=== PATIENT | female | born 1960 | race American Indian/Alaskan Native ===

== ENCOUNTER 2016-07-22 14:27 | Observation (INO) | payer BC, MEDICARE ==
[2016-07-22 14:33] VITALS: BMI 30.2
[2016-07-22] MEDS ORDERED: Albuterol-Ipratrop 3 mg / 0.5 (3 ml) UD IH STA (15:02)
[2016-07-22 15:23] LABS: ADD MANUAL DIFF? NO
[2016-07-22 15:32] LABS: BASO # 0.02 K/mm3 (0.0-2.0); BASO % 0.2 % (0.0-3.0); EOS % 0.3 % (1.5-5.0); GRAN # 5.95 (1.4-6.5); GRAN % 64.5 % (50.0-68.0); HEMATOCRIT 39.1 % (36.0-48.0); LYMPH # 2.8 (1.2-3.4); LYMPH % 30.8 % (22.0-35.0); MEAN CELL VOLUME 84.3 fL (80.0-105.0); MEAN CORPUSCULAR HEMOGLOBIN 29.1 pg (25.0-35.0); MEAN CORPUSCULAR HGB CONC 34.5 g/dl (31.0-37.0); MEAN PLATELET VOLUME 9.3 fl (7.0-11.0); MONO # 0.4 (0.1-0.6); MONO % 4.2 % (1.0-6.0); PLATELET COUNT 299 10^3/uL (120.0-450.0); WHITE BLOOD COUNT 9.2 10^3/ul (4.5-11.0)
--- NOTE | 2016-07-22 15:32 | ED PDOC ---
Arrival/HPI - General Chief Complaint: Chest Pain Time Seen by Provider: 07/22/16 14:38 Historian: Patient - History of Present Illness Narrative History of Present Illness (Text): 07/22/16 15:26 56 yo F with past medical history of high cholesterol and is a smoker, presents to the emergency room complaining of dizziness described as lightheadedness with no vertigo associated with left sided midsternal chest pain and shortness of breath which started prior to arrival. Patient states that she was fasting since last night because she initially intended to have blood work early this morning however did not go, hence only had a cup of coffee this morning then started heading towards the train station on her way to go to work. Patient states she was running for the train station when her symptoms started, she started feeling warm and lightheaded. States while she was riding on the train she ate a crumb cake, assuming her symptoms were related to not eating. When she got off of the train as she was walking to work, which is only 4 blocks away , she continued to feel lightheaded and then the chest pain and shortness of breath started. At the present time patient continues to complain of feeling lightheaded with mild left midsternal chest pain described as a pressure sensation with no shortness of breath at this time. Reports (-) worsening of symptoms with movement of head, (-) similar episodes in the past. Otherwise: (- ) recent travel, (-0 leg pain/swelling, (-) trauma, (-) headache, (-) tinnitus, (-) hearing loss, (-) cough, (-) dyspnea, (-) fever, (-) vomiting, (-) diarrhea , (-) syncope, (-) GI bleeding. Of note, the patient reports no prior stress tests in the past, does admit to a prior echo 2 years ago which she states was within normal limits. PMD Rebecca Lewis Past Medical History - Provider Review Nursing Documentation Reviewed: Yes - Travel History Have you recently traveled outside [place] w/in the past 3 mons?: No - Infectious Disease Hx of Infectious Diseases: None - Cardiac Hx Cardiac Disorders: Yes - Pulmonary Hx Respiratory Disorders: Yes Hx Asthma: Yes - Neurological Hx Neurological Disorder: No - HEENT Hx HEENT Disorder: No - Renal Hx Renal Disorder: No - Endocrine/Metabolic Hx Endocrine Disorders: No - Hematological/Oncological Hx Blood Disorders: No - Integumentary Hx Dermatological Disorder: No - Musculoskeletal/Rheumatological Hx Musculoskeletal Disorders: No - Gastrointestinal Hx Gastrointestinal Disorders: No - Genitourinary/Gynecological Hx Genitourinary Disorders: No - Psychiatric Hx Psychophysiologic Disorder: No Hx Depression: No Hx Substance Use: No - Surgical History Hx Hysterectomy: Yes Hx Tubal Ligation: Yes - Anesthesia Hx Anesthesia: Yes Hx Anesthesia Reactions: No - Suicidal Assessment Feels Threatened In Home Enviroment: No Family/Social History - Physician Review Nursing Documentation Reviewed: Yes Family/Social History: Diabetes (mother), Other (cirrhosis - father) Smoking Status: Light Smoker < 10 Cigarettes Daily Hx Alcohol Use: Yes Hx Substance Use: No Hx Substance Use Treatment: Yes (ppd) Allergies/Home Meds Allergies/Adverse Reactions: Allergies aspirin Allergy (Verified 07/22/16 14:34) SWELLING coconut Allergy (Verified 07/22/16 14:34) RASH codeine Allergy (Verified 07/22/16 14:34) SWELLING latex Allergy (Verified 07/22/16 14:34) RASH Home Medications: Home Meds Medication Instructions Recorded Confirmed No Known Home Med 07/22/16 07/22/16 Review of Systems - Review of Systems Constitutional: Normal. absent: Fatigue, Weight Change, Fevers Respiratory: Normal, SOB. absent: Cough, Sputum Cardiovascular: Normal, Chest Pain. absent: Palpitations, Edema Gastrointestinal: Normal. absent: Abdominal Pain, Stool Changes, Appetite Changes Musculoskeletal: Normal. absent: Arthralgias, Back Pain, Neck Pain Skin: Normal. absent: Rash, Pruritis, Skin Lesions Neurological: Normal, Dizziness. absent: Headache, Focal Weakness Physical Exam - Physical Exam Narrative Physical Exam (Text): 07/22/16 15:34 GENERAL APPEARANCE: Patient is awake, alert, oriented x 3, in mild distress. SKIN: Warm, dry; (-) cyanosis. HEAD: (-) scalp swelling or tenderness. EYES: (-) conjunctival pallor. ENMT: TMs normal. Mucous membranes dry. NECK: (-) tenderness, (-) stiffness, (-) lymphadenopathy. Carotids: (-) bruit. CHEST AND RESPIRATORY: (-) rales, (-) rhonchi, (-) wheezes; breath sounds equal bilaterally. HEART AND CARDIOVASCULAR: (-) irregularity; (-) murmur, (-) gallop. ABDOMEN AND GI: Soft; (-) distention, (-) tenderness, (-) rebound, (-) guarding , (-) palpable masses, (-) flank tenderness. EXTREMITIES: (-) deformity; (-) edema. Distal pulses: present. NEURO AND PSYCH: Mental status as above. plaque maker: (+) Horizontal nystagmus; Pupils equal & reactive, EOMI, (-) facial asymmetry; (-) dysarthria; tongue and uvula midline. Strength and DTRs symmetric. Gait: Not tested at this time. Vital Signs Temp Pulse Resp BP Pulse Ox 07/22/16 19:00 72 18 142/68 99 07/22/16 17:16 76 18 145/72 100 07/22/16 14:31 98.1 F 76 16 169/95 H 100 Finger Stick Blood Glucose: 96 Medical Decision Making ED Course and Treatment: 07/22/16 15:34 56 yo F w/ PMH of high cholesterol and is a smoker, presents to emergency room complaining of lightheadedness, chest pain and shortness of breath while she was walking to work this morning. Plan: -- Labs -- IV fluids -- Urinalysis -- EKG -- CXR -- Sublingual nitroglycerin -- Reassess and disposition -- CT HEAD 07/22/16 16:49 EKG: NSR at 82 bpm, (-) acute ST changes, as read by ZORA. CXR : NAD, as read by PA Labs reviewed and are noted to be within normal limits, troponin is negative, BNP is negative. On reevaluation, the patient remains awake, alert, oriented 3 in no acute distress. Patient reports improvement in her symptoms. Denies any chest pain, shortness of breath and dizziness at this time. CT head still pending. 07/22/16 17:24 On second reevaluation, the patient is laying comfortably in bed in no acute distress. Still denies any chest pain, shortness of breath or dizziness at this time. CT head is within normal limits with no acute findings. Diagnostic results discussed with the patient in great detail. Patient informed that considering her history, physical exam and diagnostic results today that it is highly recommended that she stays for inpatient tele observation for further observation and repeat 6 hour troponin. Patient's symptoms are likely due to an episode of hypoglycemia, although her FS was 96, she continued to experience residual hypoglycemic symptoms. Patient is consenting to stay for further observation. On exam, lungs are clear to auscultation, cardiac regular rate and rhythm, repeat neuro exam shows no focal findings, no nystagmus, patient is able to stand up, get out of the bed on her own without any assistance, is ambulating with a normal steady gait. Repeat troponin at 2145 ordered. VS: P76 BP145/72 R18 [id number]. Case d/w medical auditor and Dr. Cruz, agree with plan for inpatient tele obs. - Lab Interpretations Lab Results: Lab Results 07/22/16 14:38: POC Glucose (mg/dL) 96 I have reviewed the lab results: Yes Interpretation: All labs normal - RAD Interpretation Narrative RAD Interpretations (Text): 07/22/16 17:04 CT head: FINDINGS: HEMORRHAGE: No intracranial hemorrhage. BRAIN: No mass effect or edema. No atrophy or chronic microvascular ischemic changes. VENTRICLES: Unremarkable. No hydrocephalus. CALVARIUM: Unremarkable. PARANASAL SINUSES: Unremarkable as visualized. No significant inflammatory changes. MASTOID AIR CELLS: Unremarkable as visualized. No inflammatory changes. OTHER FINDINGS: None. IMPRESSION: Normal CT of the Head. - Medication Orders Current Medication Orders: Albuterol/Ipratropium (Duoneb 3 Mg/0.5 Mg (3 Ml) Ud) 3 ml IH [id number] PRN PRN Reason: Shortness of Breath Pantoprazole Sodium (Protonix Ec Tab) 40 mg PO DAILY SHAYE Discontinued Medications Albuterol/Ipratropium (Duoneb 3 Mg/0.5 Mg (3 Ml) Ud) 3 ml IH STAT STA Stop: 07/22/16 15:03 Last Admin: 07/22/16 15:27 Dose: 3 ml Nitroglycerin (Nitrostat Sl Tab) 0.4 mg SL STAT STA Stop: 07/22/16 15:01 Last Admin: 07/22/16 15:27 Dose: Not Given Non-Admin Reason: Patient Refused - PA / EFFICIENCY ANALYST / Resident Statement / has reviewed & agrees with the documentation as recorded. Disposition/Present on Arrival - Present on Arrival Any Indicators Present on Arrival: No History of DVT/PE: No History of Uncontrolled Diabetes: No Urinary Catheter: No History of Decub. Ulcer: No History Surgical Site Infection Following: None - Disposition Have Diagnosis and Disposition been Completed?: Yes Diagnosis: Lightheadedness, Chest pain, Hypoglycemia Disposition: HOSPITALIZED Disposition Time: 19:00 Patient Plan: Observation (tele) Patient Problems: Current Active Problems Problem Status Onset Chest pain Acute Hypoglycemia Acute Lightheadedness Acute Condition: STABLE
[2016-07-22 15:40] LABS: INR 1.06 (0.93-1.08); PARTIAL THROMBOPLASTIN TIME 27.8 Seconds (23.7-30.8)
[2016-07-22 16:05] LABS: URINE BILIRUBIN NEGATIVE (NEGATIVE); URINE BLOOD SMALL (NEGATIVE); URINE GLUCOSE (UA) NEGATIVE (NEGATIVE); URINE KETONE NEGATIVE (NEGATIVE); URINE LEUKOCYTE ESTERASE NEGATIVE Leu/uL (NEGATIVE); URINE PROTEIN NEGATIVE mg/dL (<30 mg/dL); URINE UROBILINOGEN 0.2 E.U./dL (<1 E.U./dL)
[2016-07-22 16:06] LABS: URINE APPEARANCE CLEAR (CLEAR); URINE COLOR YELLOW (YELLOW)
[2016-07-22 16:19] LABS: URINE BACTERIA FEW (NEG)
[2016-07-22 16:30] LABS: ALKALINE PHOSPHATASE 80 U/L (38-133); ALT/SGPT 22 U/L (7-56); AST/SGOT 26 U/L (15-39); BILIRUBIN,TOTAL 0.6 mg/dL (0.2-1.3); BLOOD UREA NITROGEN 11 mg/dL (7-21); CARBON DIOXIDE 25 mmol/L (21-33); CHLORIDE 106 mmol/L (98-107); GFR AFRICAN-AMERICAN > 60; GLUCOSE,RANDOM 103 mg/dL (70-110); MAGNESIUM 2.1 mg/dL (1.7-2.2); POTASSIUM 3.9 mmol/L (3.6-5.0); SODIUM 138 mmol/L (132-148); TOTAL PROTEIN 8.4 g/dL (5.8-8.3)
[2016-07-22 16:39] LABS: TROPONIN I < 0.01 ng/mL
--- NOTE | 2016-07-22 16:48 | CT ---
PROCEDURE: CT HEAD WITHOUT CONTRAST. HISTORY: dizziness COMPARISON: None available. TECHNIQUE: Axial computed tomography images were obtained through the head/brain without intravenous contrast. Radiation dose: Total exam DLP = 725 mGy-cm. This CT exam was performed using one or more of the following dose reduction techniques: Automated exposure control, adjustment of the mA and/or kV according to patient size, and/or use of iterative reconstruction technique. FINDINGS: HEMORRHAGE: No intracranial hemorrhage. BRAIN: No mass effect or edema. No atrophy or chronic microvascular ischemic changes. VENTRICLES: Unremarkable. No hydrocephalus. CALVARIUM: Unremarkable. PARANASAL SINUSES: Unremarkable as visualized. No significant inflammatory changes. MASTOID AIR CELLS: Unremarkable as visualized. No inflammatory changes. OTHER FINDINGS: None. IMPRESSION: Normal CT of the Head.
[2016-07-22] MEDS ORDERED: Albuterol-Ipratrop 3 mg / 0.5 (3 ml) UD IH PRN (20:47)
--- NOTE | 2016-07-22 21:40 | CP.PCM.HP ---
<Tory Bower - Last Filed: 07/23/16 01:18> History of Present Illness - History of Present Illness History of Present Illness: PGY-1 h&p 56 yo female with PMH of HLD, asthma, sciatica and dermatitis presented to ED with dizziness and lightheadedness associated with chest pain and SOB. Patient states that she was fast since the night before for blood work. She had a cup of coffee before she came to work. She states while running for the train she became dizzy and lightheaded.She ate crumb cake while on the train, believing the dizziness was related to not eating however she count to have dizziness and lightheadedness. She states while walking from the train station to work she started to feel unbalanced and developed chest tightness and SOB. While in the ED her dizziness and sob improved. She continues to report chest pain however it is no longer tightness but a pinch- like pain in the middle of the chest. She states that the pain is intermittent, lasting for a few seconds and is associated with deep breathing and movement. patient also reports numbness on the lateral aspect of her left thigh due to her sciatica. PMH: HLD, asthma, sciatica and dermatitis PSH: hysterectomy social hx: smokes 1/2-1 ppd, occasional alcohol use, denies illicit drug use Fam hx: father- cirrhosis and emphysema allergy: codeine, coconut, latex, asa PMD: [facility] Present on Admission - Present on Admission Any Indicators Present on Admission: No Review of Systems - Constitutional Constitutional: Chills. absent: Fever, Headache, Weight Gain, Weight Loss - EENT Eyes: absent: Blurred Vision, Change in Vision Ears: absent: Decreased Hearing Nose/Mouth/Throat: absent: Nasal Congestion, Nasal Discharge, Sore Throat - Cardiovascular Cardiovascular: Chest Pain, Diaphoresis, Dyspnea on Exertion. absent: Dyspnea, Edema, Pain Radiating to Arm/Neck/Jaw - Respiratory Respiratory: Dyspnea on Exertion. absent: Cough, Hemoptysis - Gastrointestinal Gastrointestinal: Constipation, Heartburn, Nausea. absent: Abdominal Pain, Diarrhea, Vomiting - Genitourinary Genitourinary: absent: Difficulty Urinating, Dysuria, Hematuria - Musculoskeletal Musculoskeletal: Numbness (left leg 2/2 sciatica). absent: Muscle Weakness, Myalgias - Integumentary Integumentary: Rash (dermatitis on left hand ). absent: Skin Ulcer, Sores, Swelling, Wounds - Neurological Neurological: Abnormal Gait, Dizziness, Numbness. absent: Confusion, Headaches , Syncope, Tingling, Vertigo - Hematologic/Lymphatic Hematologic: absent: Easy Bleeding, Easy Bruising Past Patient History - Infectious Disease Hx of Infectious Diseases: None - Past Social History Smoking Status: Heavy Smoker > 10 Cigarettes Daily Alcohol: Occasional Drugs: Denies - CARDIAC Hx Cardiac Disorders: Yes - PULMONARY Hx Respiratory Disorders: Yes Hx Asthma: Yes - NEUROLOGICAL Hx Neurological Disorder: No - HEENT Hx HEENT Problems: No - RENAL Hx Chronic Kidney Disease: No - ENDOCRINE/METABOLIC Hx Endocrine Disorders: No - HEMATOLOGICAL/ONCOLOGICAL Hx Blood Disorders: No - INTEGUMENTARY Hx Dermatological Problems: No - MUSCULOSKELETAL/RHEUMATOLOGICAL Hx Musculoskeletal Disorders: No - GASTROINTESTINAL Hx Gastrointestinal Disorders: No - GENITOURINARY/GYNECOLOGICAL Hx Genitourinary Disorders: No - PSYCHIATRIC Hx Psychophysiologic Disorder: No Hx Depression: No Hx Substance Use: No - SURGICAL HISTORY Hx Hysterectomy: Yes Hx Tubal Ligation: Yes - ANESTHESIA Hx Anesthesia: Yes Hx Anesthesia Reactions: No Meds Allergies/Adverse Reactions: Allergies Allergy/AdvReac Type Severity Reaction Status Date / Time aspirin Allergy SWELLING Verified 07/22/16 14:34 coconut Allergy RASH Verified 07/22/16 14:34 codeine Allergy SWELLING Verified 07/22/16 14:34 latex Allergy RASH Verified 07/22/16 14:34 Physical Exam - Constitutional Appears: Well, No Acute Distress - Head Exam Head Exam: ATRAUMATIC, NORMOCEPHALIC - Eye Exam Eye Exam: EOMI, Normal appearance - ENT Exam ENT Exam: Mucous Membranes Moist - Respiratory Exam Respiratory Exam: Clear to Auscultation Bilateral, NORMAL BREATHING PATTERN. absent: Decreased Breath Sounds, Rhonchi, Wheezes, Respiratory Distress - Cardiovascular Exam Cardiovascular Exam: REGULAR RHYTHM, +S1, +S2. absent: Tachycardia, Diastolic murmur, Systolic Murmur - GI/Abdominal Exam GI & Abdominal Exam: Normal Bowel Sounds, Soft. absent: Distended, Firm, Guarding, Tenderness - Extremities Exam Extremities exam: Positive for: normal inspection. Negative for: pedal edema, tenderness - Neurological Exam Neurological exam: Alert, Oriented x3 - Skin Skin Exam: Dry, Intact, Normal Color, Warm Results - Vital Signs Recent Vital Signs: Last Vital Signs Temp 98.1 F 07/22/16 14:31 Pulse 72 07/22/16 19:00 Resp 18 07/22/16 19:00 BP 142/68 07/22/16 19:00 Pulse Ox 99 07/22/16 19:00 - Labs Result Diagrams: 07/22/16 15:10 07/22/16 15:52 Labs: Laboratory Results - last 24 hr 07/22/16 07/22/16 07/22/16 15:10 15:10 15:30 WBC 9.2 RBC 4.64 Hgb 13.5 Hct 39.1 MCV 84.3 MCH 29.1 MCHC 34.5 RDW 14.0 Plt Count 299 MPV 9.3 Gran % 64.5 Lymph % (Auto) 30.8 [place] % (Auto) 4.2 Eos % (Auto) 0.3 L Baso % (Auto) 0.2 Gran # 5.95 Lymph # 2.8 Phelps # 0.4 Eos # 0.0 Baso # 0.02 PT 11.4 INR 1.06 APTT 27.8 Sodium Potassium Chloride Carbon Dioxide Anion Gap BUN Creatinine Est GFR ( Amer) Est GFR (Non-Af Amer) Random Glucose Calcium Magnesium Total Bilirubin AST ALT Alkaline Phosphatase Lactate Dehydrogenase Total Creatine Kinase Troponin I NT-Pro-B Natriuret Pep Total Protein Albumin Globulin Albumin/Globulin Ratio Urine Color Yellow Urine Appearance Clear Urine pH 6.0 Ur Specific [place] 1.010 Urine Protein Negative Urine Glucose (UA) Negative Urine Ketones Negative Urine Blood Small H Urine Nitrate Negative Urine Bilirubin Negative Urine Urobilinogen 0.2 Ur Leukocyte Esterase Negative Urine RBC 1 - 3 Urine WBC 1 - 3 Ur Epithelial Cells 1 - 3 Urine Bacteria Few 07/22/16 15:52 WBC RBC Hgb Hct MCV MCH MCHC RDW Plt Count MPV Gran % Lymph % (Auto) [place] % (Auto) Eos % (Auto) Baso % (Auto) Gran # Lymph # [place] # Eos # Baso # PT INR APTT Sodium 138 Potassium 3.9 Chloride 106 Carbon Dioxide 25 Anion Gap 11 BUN 11 Creatinine 0.9 Est GFR ( Amer) > 60 Est GFR (Non-Af Amer) > 60 Random Glucose 103 Calcium 10.0 Magnesium 2.1 Total Bilirubin 0.6 AST 26 ALT 22 Alkaline Phosphatase 80 Lactate Dehydrogenase 400 Total Creatine Kinase 159 Troponin I < 0.01 NT-Pro-B Natriuret Pep 14.7 Total Protein 8.4 H Albumin 4.1 Globulin 4.3 Albumin/Globulin Ratio 1.0 L Urine Color Urine Appearance Urine pH Ur Specific [place] Urine Protein Urine Glucose (UA) Urine Ketones Urine Blood Urine Nitrate Urine Bilirubin Urine Urobilinogen Ur Leukocyte Esterase Urine RBC Urine WBC Ur Epithelial Cells Urine Bacteria Assessment & Plan - Assessment and Plan (Free Text) Assessment: 56 yo female with PMH of HLD, asthma, sciatica and dermatitis presented to ED with dizziness and lightheadedness associated with chest pain and SOB. Plan: 1. dizziness with chest pain - most likely secondary to fasting - trops neg x1, cont to trend - EKG NSR - CXR no active disease - neurochecks - echo - cardiology and neurology consult 2. asthma - duonebs prn ppx GI- protonix DVT- SCDs <Iggy Cruz - Last Filed: 07/23/16 01:41> Results - Vital Signs Recent Vital Signs: Last Vital Signs Temp 98.6 F 07/22/16 23:22 Pulse 51 L 07/22/16 23:22 Resp 20 07/22/16 23:22 BP 128/89 07/22/16 23:22 Pulse Ox 99 07/22/16 19:00 - Labs Result Diagrams: 07/22/16 15:10 07/22/16 15:52 Labs: Laboratory Results - last 24 hr 07/22/16 07/22/16 07/22/16 15:10 15:10 15:30 WBC 9.2 RBC 4.64 Hgb 13.5 Hct 39.1 MCV 84.3 MCH 29.1 MCHC 34.5 RDW 14.0 Plt Count 299 MPV 9.3 Gran % 64.5 Lymph % (Auto) 30.8 [place]helps % (Auto) 4.2 Eos % (Auto) 0.3 L Baso % (Auto) 0.2 Gran # 5.95 Lymph # 2.8 Phelps # 0.4 Eos # 0.0 Baso # 0.02 PT 11.4 INR 1.06 APTT 27.8 Sodium Potassium Chloride Carbon Dioxide Anion Gap BUN Creatinine Est GFR ( Amer) Est GFR (Non-Af Amer) Random Glucose Calcium Magnesium Total Bilirubin AST ALT Alkaline Phosphatase Lactate Dehydrogenase Total Creatine Kinase Troponin I NT-Pro-B Natriuret Pep Total Protein Albumin Globulin Albumin/Globulin Ratio Urine Color Yellow Urine Appearance Clear Urine pH 6.0 Ur Specific [place] 1.010 Urine Protein Negative Urine Glucose (UA) Negative Urine Ketones Negative Urine Blood Small H Urine Nitrate Negative Urine Bilirubin Negative Urine Urobilinogen 0.2 Ur Leukocyte Esterase Negative Urine RBC 1 - 3 Urine WBC 1 - 3 Ur Epithelial Cells 1 - 3 Urine Bacteria Few 07/22/16 07/22/16 15:52 21:50 WBC RBC Hgb Hct MCV MCH MCHC RDW Plt Count MPV Gran % Lymph % (Auto) [place] % (Auto) Eos % (Auto) Baso % (Auto) Gran # Lymph # [place] # Eos # Baso # PT INR APTT Sodium 138 Potassium 3.9 Chloride 106 Carbon Dioxide 25 Anion Gap 11 BUN 11 Creatinine 0.9 Est GFR ( Amer) > 60 Est GFR (Non-Af Amer) > 60 Random Glucose 103 Calcium 10.0 Magnesium 2.1 Total Bilirubin 0.6 AST 26 ALT 22 Alkaline Phosphatase 80 Lactate Dehydrogenase 400 Total Creatine Kinase 159 Troponin I < 0.01 < 0.01 NT-Pro-B Natriuret Pep 14.7 Total Protein 8.4 H Albumin 4.1 Globulin 4.3 Albumin/Globulin Ratio 1.0 L Urine Color Urine Appearance Urine pH Ur Specific [place] Urine Protein Urine Glucose (UA) Urine Ketones Urine Blood Urine Nitrate Urine Bilirubin Urine Urobilinogen Ur Leukocyte Esterase Urine RBC Urine WBC Ur Epithelial Cells Urine Bacteria Attending/Attestation - Attestation I have personally seen and examined this patient.: Yes I have fully participated in the care of the patient.: Yes I have reviewed all pertinent clinical information: Yes Notes (Text): 07/23/16 01:40 Patient was seen when she was in the CODE room in the ER. Agree with history, physical examination, assessment and plan.
[2016-07-23 01:31] VITALS: RESP 20
[2016-07-23 07:17] LABS: ADD MANUAL DIFF? NO
[2016-07-23 07:20] LABS: BASO # 0.01 K/mm3 (0.0-2.0); BASO % 0.1 % (0.0-3.0); EOS # 0.1 (0.0-0.7); EOS % 1.3 % (1.5-5.0); GRAN # 4.62 (1.4-6.5); GRAN % 54.6 % (50.0-68.0); HEMATOCRIT 38.4 % (36.0-48.0); LYMPH # 3.3 (1.2-3.4); LYMPH % 38.7 % (22.0-35.0); MEAN CELL VOLUME 85.3 fL (80.0-105.0); MEAN CORPUSCULAR HEMOGLOBIN 28.7 pg (25.0-35.0); MEAN CORPUSCULAR HGB CONC 33.6 g/dl (31.0-37.0); MEAN PLATELET VOLUME 9.2 fl (7.0-11.0); MONO # 0.5 (0.1-0.6); MONO % 5.3 % (1.0-6.0); PLATELET COUNT 271 10^3/uL (120.0-450.0); RED CELL DISTRIBUTION WIDTH 14.1 % (11.5-14.5); WHITE BLOOD COUNT 8.5 10^3/ul (4.5-11.0)
[2016-07-23 07:26] VITALS: BP 121/76; TEMP 97.9; O2SAT 100
[2016-07-23 07:39] LABS: ALB/GLOB RATIO 0.9 (1.1-1.8); ALKALINE PHOSPHATASE 78 U/L (38-133); ALT/SGPT 29 U/L (7-56); AST/SGOT 23 U/L (15-39); BILIRUBIN,TOTAL 0.5 mg/dL (0.2-1.3); BLOOD UREA NITROGEN 11 mg/dL (7-21); CALCIUM 9.6 mg/dL (8.4-10.5); CARBON DIOXIDE 26 mmol/L (21-33); CHLORIDE 106 mmol/L (98-107); GFR AFRICAN-AMERICAN > 60; GLUCOSE,RANDOM 94 mg/dL (70-110); POTASSIUM 3.9 mmol/L (3.6-5.0); SODIUM 140 mmol/L (132-148); TOTAL PROTEIN 7.9 g/dL (5.8-8.3)
--- NOTE | 2016-07-23 07:52 | RAD ---
HISTORY: CP COMPARISON: No prior. FINDINGS: LUNGS: No active pulmonary disease. PLEURA: No significant pleural effusion identified, no pneumothorax apparent. CARDIOVASCULAR: Normal. OSSEOUS STRUCTURES: No significant abnormalities. VISUALIZED UPPER ABDOMEN: Normal. OTHER FINDINGS: None. IMPRESSION: No active disease.
[2016-07-23 08:28] LABS: TROPONIN I < 0.01 ng/mL
[2016-07-23] MEDS ORDERED: Pantoprazole 40 mg EC Tab PO SCH (10:00)
[2016-07-23 10:59] VITALS: PULSE 52
--- NOTE | 2016-07-23 11:20 | CP.PCM.DIS ---
<JustinoeleniJane - Last Filed: 07/23/16 11:16> Provider - Provider Date of Admission: 07/22/16 15:00 Attending physician: Ryan Diallo MD Primary care physician: Leeanne Lewis MD Consults: Cardiology: Dr. Soriano Neuro: Dr. Mcginnis Time Spent in preparation of Discharge (in minutes): 45 Diagnosis - Discharge Diagnosis (1) Chest pain Status: Acute (2) Lightheadedness Status: Acute (3) Asthma Status: Chronic Hospital Course - Lab Results Lab Results: Most Recent Lab Values WBC 8.5 10^3/ul (4.5-11.0) 07/23/16 07:16 RBC 4.50 10^6/uL (3.5-6.1) 07/23/16 07:16 Hgb 12.9 gm/dL (12.0-16.0) 07/23/16 07:16 Hct 38.4 % (36.0-48.0) 07/23/16 07:16 MCV 85.3 fL (80.0-105.0) 07/23/16 07:16 MCH 28.7 pg (25.0-35.0) 07/23/16 07:16 MCHC 33.6 g/dl (31.0-37.0) 07/23/16 07:16 RDW 14.1 % (11.5-14.5) 07/23/16 07:16 Plt Count 271 10^3/uL (120.0-450.0) 07/23/16 07:16 MPV 9.2 fl (7.0-11.0) 07/23/16 07:16 Gran % 54.6 % (50.0-68.0) 07/23/16 07:16 Lymph % (Auto) 38.7 % (22.0-35.0) H 07/23/16 07:16 [place] % (Auto) 5.3 % (1.0-6.0) 07/23/16 07:16 Eos % (Auto) 1.3 % (1.5-5.0) L 07/23/16 07:16 Baso % (Auto) 0.1 % (0.0-3.0) 07/23/16 07:16 Gran # 4.62 (1.4-6.5) 07/23/16 07:16 Lymph # 3.3 (1.2-3.4) 07/23/16 07:16 [place] # 0.5 (0.1-0.6) 07/23/16 07:16 Eos # 0.1 (0.0-0.7) 07/23/16 07:16 Baso # 0.01 K/mm3 (0.0-2.0) 07/23/16 07:16 PT 11.4 Seconds (9.9-11.8) 07/22/16 15:10 INR 1.06 (0.93-1.08) 07/22/16 15:10 APTT 27.8 Seconds (23.7-30.8) 07/22/16 15:10 Sodium 140 mmol/L (132-148) 07/23/16 07:16 Potassium 3.9 mmol/L (3.6-5.0) 07/23/16 07:16 Chloride 106 mmol/L (98-107) 07/23/16 07:16 Carbon Dioxide 26 mmol/L (21-33) 07/23/16 07:16 Anion Gap 12 (10-20) 07/23/16 07:16 BUN 11 mg/dL (7-21) 07/23/16 07:16 Creatinine 1.1 mg/dL (0.5-1.4) 07/23/16 07:16 Est GFR ( Amer) > 60 07/23/16 07:16 Est GFR (Non-Af Amer) 51 07/23/16 07:16 POC Glucose (mg/dL) 96 mg/dL (65-110) 07/22/16 14:38 Random Glucose 94 mg/dL (70-110) 07/23/16 07:16 Calcium 9.6 mg/dL (8.4-10.5) 07/23/16 07:16 Magnesium 2.1 mg/dL (1.7-2.2) 07/22/16 15:52 Total Bilirubin 0.5 mg/dL (0.2-1.3) 07/23/16 07:16 AST 23 U/L (15-39) 07/23/16 07:16 ALT 29 U/L (7-56) 07/23/16 07:16 Alkaline Phosphatase 78 U/L (38-133) 07/23/16 07:16 Lactate Dehydrogenase 345 U/L (333-699) 07/23/16 07:16 Total Creatine Kinase 147 U/L (35-230) 07/23/16 07:16 Troponin I < 0.01 ng/mL 07/23/16 07:16 NT-Pro-B Natriuret Pep 14.7 pg/mL (0-450) 07/22/16 15:52 Total Protein 7.9 g/dL (5.8-8.3) 07/23/16 07:16 Albumin 3.8 g/dL (3.0-4.8) 07/23/16 07:16 Globulin 4.1 gm/dL 07/23/16 07:16 Albumin/Globulin Ratio 0.9 (1.1-1.8) L 07/23/16 07:16 Urine Color Yellow (YELLOW) 07/22/16 15:30 Urine Appearance Clear (CLEAR) 07/22/16 15:30 Urine pH 6.0 (4.7-8.0) 07/22/16 15:30 Ur Specific [place] 1.010 (1.005-1.035) 07/22/16 15:30 Urine Protein Negative mg/dL (<30 mg/dL) 07/22/16 15:30 Urine Glucose (UA) Negative mg/dL (NEGATIVE) 07/22/16 15:30 Urine Ketones Negative mg/dL (NEGATIVE) 07/22/16 15:30 Urine Blood Small (NEGATIVE) H 07/22/16 15:30 Urine Nitrate Negative (NEGATIVE) 07/22/16 15:30 Urine Bilirubin Negative (NEGATIVE) 07/22/16 15:30 Urine Urobilinogen 0.2 E.U./dL (<1 E.U./dL) 07/22/16 15:30 Ur Leukocyte Esterase Negative [place]/uL (NEGATIVE) 07/22/16 15:30 Urine RBC 1 - 3 /hpf (0-2) 07/22/16 15:30 Urine WBC 1 - 3 /hpf (0-6) 07/22/16 15:30 Ur Epithelial Cells 1 - 3 /hpf (0-5) 07/22/16 15:30 Urine Bacteria Few (NEG) 07/22/16 15:30 - Hospital Course Hospital Course: 56 year old female with past medical history of HLD, asthma, sciatica and dermatitis was admitted to hospital for CP r/o ACS, lightheadedness. CT of head on admission was negative for acute changes. Troponins were negative x 3 and EKG showed no ST changes. Cardiology was consulted and recommended outpatient stress test. Patient was given reports of all her imaging and blood tests before discharge. Patient's symptoms improved and she was deemed stable for discharge. - Date & Time of H&P Date of H&P: 07/23/16 Time of H&P: 11:18 Discharge Exam - Head Exam Head Exam: ATRAUMATIC, NORMOCEPHALIC - Eye Exam Eye Exam: EOMI - ENT Exam ENT Exam: Mucous Membranes Moist - Respiratory Exam Respiratory Exam: Clear to PA & Lateral. absent: Accessory Muscle Use, Rales, Rhonchi, Wheezes, Respiratory Distress - Cardiovascular Exam Cardiovascular Exam: REGULAR RHYTHM, +S1, +S2. absent: Diastolic murmur, Gallop , Rubs, Systolic Murmur - GI/Abdominal Exam GI & Abdominal Exam: Normal Bowel Sounds, Soft. absent: Distended, Firm, Guarding, Tenderness - Extremities Exam Additional comments: no edema or tenderness - Neurological Exam Neurological exam: Alert, Oriented x3 - Psychiatric Exam Psychiatric exam: Normal Affect, Normal Mood - Skin Skin Exam: Dry, Intact, Normal Color, Warm Discharge Plan - Follow Up Plan Condition: STABLE Disposition: HOME/ ROUTINE Instructions: Chest Pain (ED) Additional Instructions: 1. Follow up with PMD DR. Lewis in 1 week. 2. Follow up with DR. Soriano for stress test, echo next week. 3. Stop smoking. Referrals: Leeanne Lewis MD [Primary Care Provider] - <Ryan Diallo - Last Filed: 07/23/16 14:32> Provider - Provider Date of Admission: 07/22/16 15:00 Attending physician: Ryan Diallo MD Primary care physician: Leeanne Lewis MD Hospital Course - Lab Results Lab Results: Most Recent Lab Values WBC 8.5 10^3/ul (4.5-11.0) 07/23/16 07:16 RBC 4.50 10^6/uL (3.5-6.1) 07/23/16 07:16 Hgb 12.9 gm/dL (12.0-16.0) 07/23/16 07:16 Hct 38.4 % (36.0-48.0) 07/23/16 07:16 MCV 85.3 fL (80.0-105.0) 07/23/16 07:16 MCH 28.7 pg (25.0-35.0) 07/23/16 07:16 MCHC 33.6 g/dl (31.0-37.0) 07/23/16 07:16 RDW 14.1 % (11.5-14.5) 07/23/16 07:16 Plt Count 271 10^3/uL (120.0-450.0) 07/23/16 07:16 MPV 9.2 fl (7.0-11.0) 07/23/16 07:16 Gran % 54.6 % (50.0-68.0) 07/23/16 07:16 Lymph % (Auto) 38.7 % (22.0-35.0) H 07/23/16 07:16 [place] % (Auto) 5.3 % (1.0-6.0) 07/23/16 07:16 Eos % (Auto) 1.3 % (1.5-5.0) L 07/23/16 07:16 Baso % (Auto) 0.1 % (0.0-3.0) 07/23/16 07:16 Gran # 4.62 (1.4-6.5) 07/23/16 07:16 Lymph # 3.3 (1.2-3.4) 07/23/16 07:16 [place] # 0.5 (0.1-0.6) 07/23/16 07:16 Eos # 0.1 (0.0-0.7) 07/23/16 07:16 Baso # 0.01 K/mm3 (0.0-2.0) 07/23/16 07:16 PT 11.4 Seconds (9.9-11.8) 07/22/16 15:10 INR 1.06 (0.93-1.08) 07/22/16 15:10 APTT 27.8 Seconds (23.7-30.8) 07/22/16 15:10 Sodium 140 mmol/L (132-148) 07/23/16 07:16 Potassium 3.9 mmol/L (3.6-5.0) 07/23/16 07:16 Chloride 106 mmol/L (98-107) 07/23/16 07:16 Carbon Dioxide 26 mmol/L (21-33) 07/23/16 07:16 Anion Gap 12 (10-20) 07/23/16 07:16 BUN 11 mg/dL (7-21) 07/23/16 07:16 Creatinine 1.1 mg/dL (0.5-1.4) 07/23/16 07:16 Est GFR ( Amer) > 60 07/23/16 07:16 Est GFR (Non-Af Amer) 51 07/23/16 07:16 POC Glucose (mg/dL) 96 mg/dL (65-110) 07/22/16 14:38 Random Glucose 94 mg/dL (70-110) 07/23/16 07:16 Calcium 9.6 mg/dL (8.4-10.5) 07/23/16 07:16 Magnesium 2.1 mg/dL (1.7-2.2) 07/22/16 15:52 Total Bilirubin 0.5 mg/dL (0.2-1.3) 07/23/16 07:16 AST 23 U/L (15-39) 07/23/16 07:16 ALT 29 U/L (7-56) 07/23/16 07:16 Alkaline Phosphatase 78 U/L (38-133) 07/23/16 07:16 Lactate Dehydrogenase 345 U/L (333-699) 07/23/16 07:16 Total Creatine Kinase 147 U/L (35-230) 07/23/16 07:16 Troponin I < 0.01 ng/mL 07/23/16 07:16 NT-Pro-B Natriuret Pep 14.7 pg/mL (0-450) 07/22/16 15:52 Total Protein 7.9 g/dL (5.8-8.3) 07/23/16 07:16 Albumin 3.8 g/dL (3.0-4.8) 07/23/16 07:16 Globulin 4.1 gm/dL 07/23/16 07:16 Albumin/Globulin Ratio 0.9 (1.1-1.8) L 07/23/16 07:16 Urine Color Yellow (YELLOW) 07/22/16 15:30 Urine Appearance Clear (CLEAR) 07/22/16 15:30 Urine pH 6.0 (4.7-8.0) 07/22/16 15:30 Ur Specific [place] 1.010 (1.005-1.035) 07/22/16 15:30 Urine Protein Negative mg/dL (<30 mg/dL) 07/22/16 15:30 Urine Glucose (UA) Negative mg/dL (NEGATIVE) 07/22/16 15:30 Urine Ketones Negative mg/dL (NEGATIVE) 07/22/16 15:30 Urine Blood Small (NEGATIVE) H 07/22/16 15:30 Urine Nitrate Negative (NEGATIVE) 07/22/16 15:30 Urine Bilirubin Negative (NEGATIVE) 07/22/16 15:30 Urine Urobilinogen 0.2 E.U./dL (<1 E.U./dL) 07/22/16 15:30 Ur Leukocyte Esterase Negative [place]/uL (NEGATIVE) 07/22/16 15:30 Urine RBC 1 - 3 /hpf (0-2) 07/22/16 15:30 Urine WBC 1 - 3 /hpf (0-6) 07/22/16 15:30 Ur Epithelial Cells 1 - 3 /hpf (0-5) 07/22/16 15:30 Urine Bacteria Few (NEG) 07/22/16 15:30 Attending/Attestation - Attestation I have personally seen and examined this patient.: Yes I have fully participated in the care of the patient.: Yes I have reviewed all pertinent clinical information, including history, physical exam and plan: Yes Notes (Text): 07/23/16 14:23 attending note; Patient seen and examined with resident and Heavy Machinery Operator Dr. Soriano. Patient is a 56 year old female with past medical history of HLD, asthma, sciatica and dermatitis was admitted to hospital for CP r/o ACS, lightheadedness. dizziness is mostly secondary to prolonged fasting. CT head is negative. Cardiac enzymes 3 negative. Patient will be discharged home today. Follow-upWith Dr. Soriano for stress test and echo next week. follow-up with PMD . diagnosis; dizziness Due to fasting musculoskeletal chest pain Asthma Dermatitis 07/23/16 14:32
--- NOTE | 2016-07-23 12:03 | CON ---
DATE: 07/23/2016 The patient is in room 365, bed 2. REASON FOR CONSULTATION: Chest pain. HISTORY OF PRESENT ILLNESS: The patient stated that she was going to have blood work fasting in the morning, and she stopped eating after 9:00 p.m. She [place] to work in the train when she felt di zzy, weak and had pressure-like chest pain on a localized point on the right lower chest going back d irectly in the back, not spreading of the chest. It was localized to the area of pain which cor responding area in the back it radiated to without any numbness of arms or any nausea or vomiting. T he patient felt dizzy. This episode lasted about 15 minutes. The patient states that she walks a lo t. She never had any chest pain on exertion. PAST MEDICAL HISTORY: Positive for asthma, dermatitis and sciatica. PAST SURGICAL HISTORY: The patient had a hysterectomy. PERSONAL HISTORY: She smokes 5-6 cigarettes a day, drinks socially. FAMILY HISTORY: One brother has coronary artery disease at around age is 60. ALLERGIES: SHE IS ALLERGIC TO COCONUT, CODEINE, LATEX, AND ASPIRIN. MEDICATIONS AT HOME: She denied taking any medications at present. REVIEW OF SYSTEMS: All the systems were reviewed, positive mentioned in the history. Others were ne gative. PHYSICAL EXAMINATION: VITAL SIGNS: Blood pressure 121/76, respirations 20, pulse 68, temperature 97.9. HEENT: Head is normocephalic. Eyes: Pupils normal. Conjunctivae normal. Nose and throat normal. NECK: JVP low. Carotid equal. THORAX: AP diameter normal. LUNGS: Clear. CARDIOVASCULAR: S1, S2. ABDOMEN: Soft, nontender, no organomegaly. Bowel sounds normal. EXTREMITIES: No clubbing, no cyanosis. LABORATORY DATA: WBC 8.5, hemoglobin 12.9, hematocrit 38.4, platelet 271. Sodium 140, potassium 3.9 , BUN 11, creatinine 1.1, glucose, calcium, AST, ALT normal. Troponin x 3 is negative. Total protei n and albumin normal. Chest x-ray, no abnormality found. CAT scan of the head was normal. EKG show ed regular sinus rhythm, nonspecific ST-T changes. DIAGNOSIS: Chest pain is atypical. Dizziness may be related to prolonged fasting. PLAN: From a cardiac point of view, the patient wants to go home and she promised to do stress test and echo outpatient, so we are going to make arrangements to do stress test and echo as an outpatient . The patient is totally asymptomatic at present, and we will follow the patient as an outpatient fo r stress test and echo. Mak Soriano MD cc: [id number] TT: 07/23/2016 12:03:19 Confirmation # [id number] Dictation # [id number] mn
--- NOTE | 2016-07-23 18:55 | CARD ---
APPROVED REPORT EKG Measurement Heart [id number] <Conclusion> Normal sinus rhythm Nonspecific T wave abnormality Abnormal ECG
== END 2016-07-23 11:30 | disposition home or self-care (01) ==
LOC: ED 14:27 → EROBSV 15:00 → ERH 20:32 → 3RNO 22:35
PROVIDERS: ADMIT Student in an Organized Health Care Education/Training Program; ATTEND Internal Medicine
DX: R07.89 Other chest pain (principal); R42 Dizziness and giddiness; E16.2 Hypoglycemia, unspecified; J45.909 Unspecified asthma, uncomplicated; E78.00 Pure hypercholesterolemia, unspecified; E78.5 Hyperlipidemia, unspecified; L30.9 Dermatitis, unspecified; M54.30 Sciatica, unspecified side; Z82.49 Family history of ischemic heart disease and other diseases of the circulatory system; Z82.5 Family history of asthma and other chronic lower respiratory diseases; Z90.710 Acquired absence of both cervix and uterus; Z98.51 Tubal ligation status; F17.210 Nicotine dependence, cigarettes, uncomplicated; Z88.5 Allergy status to narcotic agent; Z88.6 Allergy status to analgesic agent; Z91.040 Latex allergy status; Z91.018 Allergy to other foods
CPT/HCPCS: 36415; 70450; 71010; 80053; 81001; 82550; 82948; 83615; 83735; 83880; 84484; 85025; 85610; 85730; 93005; 99285; G0378

== ENCOUNTER 2016-09-25 06:04 | Day surgery (SDC) | payer BC ==
--- NOTE | 2016-09-23 02:26 | HP ---
REASON FOR ADMISSION: Left heart cath, possible angioplasty, abnormal stress test. BRIEF CLINICAL HISTORY: This is a 56-year-old female with past medical history significant for asthma, dermatitis, sciatica, who was admitted on 07/23/2016 with a chest pain, was atypical and ruled out for *------* HI. The patient was sent home and had a stress test as an outpatient dated 08/16/2016, which was abnormal, so the patient was scheduled for elective cardiac cath, possible angioplasty. PAST MEDICAL HISTORY: Significant for asthma, dermatitis, sciatica, chest pain, and abnormal stress test. PAST SURGICAL HISTORY: Significant for hysterectomy. SOCIAL HISTORY: Smokes 5-6 cigarette a day. Drinks socially. FAMILY HISTORY: Significant for coronary artery disease. Brother had a coronary artery disease around the age of 55 to 60. ALLERGIES: COCONUT, CODEINE, LATEX AND ASPIRIN. HOME MEDICATIONS: The patient is not taking any medications currently. REVIEW OF SYSTEMS: As per HPI. Recent cardiac workup as follows. The patient had a stress test on 08/16/2016 where the patient walked on the treadmill for 7 minute and 52 seconds, stage III Se protocol and exercise capacity is 9.8 METs. Maximum blood pressure achieved 142/86, maximum heart rate achieved was 153, 93% of predicted heart rate ,164 with respect to the age. Her nuclear stress test isotope was 7 minutes and 52 seconds of Se protocol and stopped due to fatigue, the patient achieved 93% of predicted heart rate. No chest pain. No ST-T changes noted, but the nuclear scan shows a reversible anterior defect suspicious for ischemia. However, the effect of motion artifact or change in position of breast cannot be totally excluded. The patient had echocardiography done on 08/03/2016 that showed an ejection fraction of 55% to60%. No MVP. No PE. No vegetation. No thrombus. Trace aortic regurgitation, mild mitral regurgitation, mild tricuspid regurgitation noted. PHYSICAL EXAMINATION: VITAL SIGNS: As follows: Height of the patient is 5 feet. Weight of the patient is 159 pounds. Body mass index 30 kg/m2. Heart rate 50, blood pressure 140/80. HEENT: PERRLA. Extraocular muscles intact. NECK: Supple. No carotid bruit. No thyromegaly. CHEST: Clear to auscultation. HEART: S1 and S2, regular. ABDOMEN: Soft. EXTREMITIES: Clubbing and cyanosis negative. Blood workup: As of 07/23/2016, WBC 8.5, hemoglobin 12.9, hematocrit 38.4, platelet count 271. Chemistry as of 07/23/2016; sodium 140, potassium 3.9, chloride 106, carbon dioxide 26, anion gap of 12, BUN 11, creatinine was 1.1. Troponin at that time was negative. EKG shows normal sinus, no acute ST-T changes noted. IMPRESSION: Asthma, chronic obstructive pulmonary disease, chest pain, though it is atypical, but she is having multiple relatives with coronary artery disease including brother had heart conditions at age of around 55. Stress echo was done. Stress test shows suspicious of ischemia. Echo showed mild MR, mild TR and trace AR, preserved LV function ejection fraction of 55% to 60%. RECOMMENDATIONS: We will load with Plavix and aspirin. Discussed in length with the patient cardiac catheterization and the patient agreed for procedure for cardiac catheterization. Further recommendation after cardiac catheterization. Also discussed with the patient of possible angioplasty. If any blocking of artery more than 70%, will proceed for angioplasty. The risks, benefits and alternatives for cardiac catheterization and angioplasty were discussed, the patient agreed, will proceed for cardiac catheterization. We wait until the blood work is available recent and then will proceed for cardiac cath. Thank you Dr. Diallo for providing the opportunity in taking care of the patient. We will follow with you. Mak Cochran MD
[2016-09-25] MEDS ORDERED: Phenylephrine 10 mg/ml Inj ONE (06:23)
[2016-09-25] MEDS ORDERED: Lidocaine 2% Inj (20ml) ONE (06:23)
[2016-09-25] MEDS ORDERED: Iodixanol 320 MG/ML 200 ML BOTTLE IV ONE (06:24)
[2016-09-25] MEDS ORDERED: Nitroglycerin 50mg in D5W 50 MG/250 ML BOTTLE IV ONE (06:24)
[2016-09-25] MEDS ORDERED: Iodixanol 320 MG/ML 100 ML BOTTLE IV ONE (06:24)
[2016-09-25] MEDS ORDERED: Iohexol 350mgl/ml 50 ML ONE (06:24)
[2016-09-25 06:48] LABS: BASO # 0.02 K/mm3 (0.0-2.0); BASO % 0.2 % (0.0-3.0); EOS # 0.1 (0.0-0.7); EOS % 0.7 % (1.5-5.0); GRAN % 61.8 % (50.0-68.0); HEMOGLOBIN 13.6 gm/dL (12.0-16.0); LYMPH # 3.1 (1.2-3.4); LYMPH % 32.3 % (22.0-35.0); MEAN CELL VOLUME 86.6 fL (80.0-105.0); MEAN CORPUSCULAR HEMOGLOBIN 29.4 pg (25.0-35.0); MEAN PLATELET VOLUME 9.1 fl (7.0-11.0); MONO # 0.5 (0.1-0.6); PLATELET COUNT 310 10^3/uL (120.0-450.0); RBC 4.62 10^6/uL (3.5-6.1); RED CELL DISTRIBUTION WIDTH 13.6 % (11.5-14.5); WHITE BLOOD COUNT 9.6 10^3/ul (4.5-11.0)
[2016-09-25 06:51] LABS: BLOOD UREA NITROGEN 13 mg/dL (7-21); CALCIUM 10.1 mg/dL (8.4-10.5); GFR AFRICAN-AMERICAN > 60; GFR NON-AFRICAN AMERICAN 57; HDL CHOLESTEROL 51 mg/dL (29-60)
[2016-09-25 06:53] LABS: INR 1.06 (0.93-1.08); PARTIAL THROMBOPLASTIN TIME 29.9 Seconds (23.7-30.8); PROTHROMBIN TIME 11.4 Seconds (9.9-11.8)
[2016-09-25 07:01] LABS: LDL CHOLESTEROL 174 mg/dL (0-129)
[2016-09-25] MEDS ORDERED: Midazolam 2 MG/2 ML VIAL ONE (07:01)
[2016-09-25] MEDS ORDERED: DiphenhydrAMINE 50 mg/ml Inj ONE (08:04)
[2016-09-25] MEDS ORDERED: Famotidine 20mg/50ml 20 MG/50 ML BAG IVPB ONE (08:04)
[2016-09-25] MEDS ORDERED: Bacitracin 500 Units/gm Oint Foilpak UD TOP ONE (08:21)
[2016-09-25] MEDS ORDERED: Sodium Chloride 0.9% 1,000 ML IV SCH (08:30)
[2016-09-25 09:01] VITALS: TEMP 98.2
[2016-09-25 09:44] VITALS: RESP 18
[2016-09-25] MEDS ORDERED: Bacitracin 500 Units/gm Oint Foilpak UD ONE (10:42)
[2016-09-25 11:38] VITALS: BP 142/61; PULSE 68; O2SAT 96
--- NOTE | 2016-09-25 18:17 | CARD ---
APPROVED REPORT Procedure(s) performed: Left Heart Catheterization HISTORY The patient is a 56 year-old female with a history of : most recent EF: 62%. (EF Method: RADIONUCLIDE), chronic lung disease, tobacco history() : The patient is a current smoker , chest pain and an abnormal stress test anterior ischemis. INDICATION The indication(s) include : positive stress test. CASE TECHNIQUE The patient was brought electively to the Cardiac Catheterization Laboratory in a fasting state and was prepped and draped in a sterile manner. The left wrist was infiltrated with 2% Lidocaine subcutaneous anesthesia. A 6 Fr Glidesheath (Radial) sheath was inserted into the left radial artery without difficulty. Coronary angiography was performed using coronary diagnostic catheters. The left coronary system was accessed and visualized with a Diagnostic ,5 Fr JL 3.5 catheter. The right coronary system was accessed and visualized with a Diagnostic ,5 Fr JR 4 catheter. The left ventricle was accessed and visualized with a 5 Fr Pigtail 145 (Angled) catheter. Left ventricular/Aortic Valve gradient assessed on pullback. Left ventriculogram was performed in BISHOP projection. Closure device was deployed with a Fr TR Band (Regular) without any complications. Vessel Analysis The patient's coronary anatomy is co-dominant. The left main coronary artery is a medium size vessel with intimal irregularities. The left main bifurcates to the left anterior descending and circumflex. The left anterior descending artery is a medium size vessel with diffuse calcification noted throughout this vessel and without significant stenosis. The first diagonal branch is a small size vessel with diffuse calcification noted throughout this vessel and without significant stenosis. The second diagonal branch is a small size vessel with diffuse calcification noted throughout this vessel and without significant stenosis. The circumflex artery is a large size vessel with diffuse calcification noted throughout this vessel and without significant stenosis. The first obtuse marginal branch is a small size vessel with diffuse calcification noted throughout this vessel and without significant stenosis. The second obtuse marginal branch is a small size vessel with diffuse calcification noted throughout this vessel and without significant stenosis. There is a 60% stenosis in the ostial segment. The left posterior descending artery is a medium size vessel with intimal irregularities and without significant stenosis. The right coronary artery is a medium size vessel with diffuse calcification noted throughout this vessel and without significant stenosis. The right posterior descending artery is a small size vessel with diffuse calcification noted throughout this vessel and without significant stenosis. Left Ventricle The left ventricle is normal in size with hyperdynamic contractility. The left ventricular ejection fraction is estimated to be 65-70%. The left ventricular end diastolic pressure is 15 mmHg. There was no gradient across the aortic valve upon pullback. Conclusion Non obstructive CAD, limited to OM2 ostial 60%, small vessel less than 1.5 mm in Diameter. Diffuse athero sclerotic Burder in RCA. Hyperdynamic Ventricle, Ef-65-70%, EDP-15 mmof Hg. Recommendations Smoking Cessation Aggressive Medical TherapyCardiac Risk Reduction Program CC; Drs. Manuel Jarrell / Christie.
== END 2016-09-25 12:40 | disposition home or self-care (01) ==
LOC: CATH 06:04
PROVIDERS: ATTEND Internal Medicine Cardiovascular Disease
DX: I25.10 Atherosclerotic heart disease of native coronary artery without angina pectoris (principal); R94.39 Abnormal result of other cardiovascular function study; J45.909 Unspecified asthma, uncomplicated; L30.9 Dermatitis, unspecified; J44.9 Chronic obstructive pulmonary disease, unspecified; Z88.6 Allergy status to analgesic agent; Z91.040 Latex allergy status; Z88.5 Allergy status to narcotic agent; Z91.018 Allergy to other foods; Z82.49 Family history of ischemic heart disease and other diseases of the circulatory system; R07.89 Other chest pain; Z90.710 Acquired absence of both cervix and uterus; F17.210 Nicotine dependence, cigarettes, uncomplicated
CPT/HCPCS: 36415; 80048; 80061; 85025; 85610; 85730; 86850; 86900; 93458; 99152; C1769; C1887 ×2; J1200; J1644 ×2; J2250; J2930; J3010; J7040 ×2